=== PATIENT | male | born 1995 | race Caucasian/White ===

== ENCOUNTER → 2018-06-30 | Outpatient (CLI) | payer BC ==
[~2018-06-30] MED LIST: Cyclobenzaprine5 MG PO; HYDACE5 PO; IBUP600 PO; LORA10ER PO; PRED20 PO; RXCEPH250S PO
== END | disposition home or self-care (01) ==
LOC: LAB SHORT 20:12 → LAB EV 20:12
DX: R50.9 Fever, unspecified (principal)
CPT/HCPCS: 87070